=== PATIENT | female | born 2000 ===

== ENCOUNTER 2021-12-19 16:31 | Emergency (ER) | payer MEDICAID ==
--- NOTE | 2021-12-19 16:43 | Emergency Department Report ---
ED Recheck HPI - General Stated Complaint: POSSIBLE Source: patient Mode of arrival: Ambulatory Limitations: No Limitations - History of Present Illness Initial Comments: She is a 21-year-old female that comes to the emergency room after having a positive home test. She is here for confirmation of the . Patient denies any abdominal pain. Denies dysuria. Denies vaginal discharge. Denies any vaginal bleeding. Reports her last menstrual period 3 weeks ago Is ambulatory nontoxic and [id number] on arrival to the ER Complaint: other ED Review of Systems ROS: Stated complaint: POSSIBLE Other details as noted in HPI Comment: All other systems reviewed and negative ED Past Medical Hx - Past Medical History Previous Medical History?: No - Surgical History Past Surgical History?: No - Family History Family history: no significant - Social History Smoking Status: Never Smoker ED Physical Exam - General Limitations: No Limitations General appearance: alert, in no apparent distress - Head Head exam: Present: atraumatic, normocephalic - Eye Eye exam: Present: normal appearance - ENT ENT exam: Present: mucous membranes moist - Neck Neck exam: Present: normal inspection - Respiratory Respiratory exam: Present: normal lung sounds bilaterally. Absent: respiratory distress - Cardiovascular Cardiovascular Exam: Present: regular rate, normal rhythm. Absent: systolic murmur, diastolic murmur, rubs, gallop - GI/Abdominal GI/Abdominal exam: Present: soft, normal bowel sounds - Extremities Exam Extremities exam: Present: normal inspection - Back Exam Back exam: Present: normal inspection - Neurological Exam Neurological exam: Present: alert, oriented X3 - Psychiatric Psychiatric exam: Present: normal affect, normal mood - Skin Skin exam: Present: warm, dry, intact, normal color. Absent: rash ED Recheck MDM - Core Measures Measure Exclusions: not indicated - Differential Diagnosis Wound Recheck - Medical Decision Making I explained to the patient that we do not do routine test. That she will need to see [facility]WAITRESS. Have given a referral. Is ambulatory, not ill nontoxic on discharge Critical care attestation.: If time is entered above; I have spent that time in minutes in the direct care of this critically ill patient, excluding procedure time. ED Disposition Clinical Impression: Possible Disposition: 07 LEFT WITHOUT BEING SEEN Is pt being admited?: No Does the pt Need Aspirin: No Condition: Stable Referrals: MANPREET DIAZ MD [Staff Physician] - 3-5 Days Time of Disposition: 16:42
== END 2021-12-19 16:42 | disposition left against medical advice (07) ==
LOC: ED 16:31
DX: Z00.00 Encounter for general adult medical examination without abnormal findings (principal); Z53.21 Procedure and treatment not carried out due to patient leaving prior to being seen by health care provider